=== PATIENT | female | born 1970 | race American Indian/Alaskan Native ===

== ENCOUNTER 2017-06-23 10:01 | Emergency (ER) | payer OTHER ==
[2017-06-23 12:27] VITALS: BP 161/88
--- NOTE | 2017-06-23 12:46 | Emergency Department Report ---
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 Patient was inside a car wash and a large wheal in the ceiling fell on the patient's head. Patient had brief loss of consciousness. Patient states she did have several episodes of nausea vomiting last night and has had a persistent headache. Patient will have a CT head ordered and will be reassessed
[2017-06-23] MEDS ORDERED: TORADOL IM ONE (12:47)
--- NOTE | 2017-06-23 13:23 | Cat Scan Report ---
FINAL REPORT EXAM: CT HEAD/BRAIN WO CON HISTORY: Head injury with LOC TECHNIQUE: CT examination of the head without IV contrast PRIORS: None. FINDINGS: No acute air-fluid level visualized in the included air-filled sinuses. Bone windows demonstrate no acute fracture. The brain is without mass, mass effect, hemorrhage, or acute infarct. There is no extra-axial intracranial bleed, brain bleed, or midline shift. The ventricles and sulci are age-appropriate. IMPRESSION: No acute CVA, intracranial bleed, or brain mass
--- NOTE | 2017-06-23 14:01 | Cat Scan Report ---
FINAL REPORT EXAM: CT CERVICAL SPINE WO CON HISTORY: trauma neck pain TECHNIQUE: CT of the Cervical Spine without IV contrast. Coronal and sagittal reformatted images were provided. PRIORS: None currently available. FINDINGS: Reversal of the cervical alignment centered at C4-C5. There is no fracture. There is no subluxation. There is no atlantooccipital dislocation. Occipitiocervical joint is intact. C1-C2: Intact. Mild degenerative discs are present at C3-C7. No significant canal narrowing. Some neural foraminal narrowing. Heterogenous, mildly enlarged thyroid gland. A distinct nodules not evident; however, nodules are not excluded. Remaining cervical levels do not demonstrate significant canal or foraminal narrowing. Prevertebral soft tissue structures are unremarkable. IMPRESSION: No acute fracture. Degenerative discs. Reversal of the cervical alignment centered at C4-C5.
--- NOTE | 2017-06-23 14:14 | Emergency Department Report ---
ED Head Trauma HPI - General Chief complaint: Head Injury Stated complaint: BACK/KNEE PAIN Time Seen by Provider: 06/23/17 12:38 Source: patient Mode of arrival: Ambulatory Limitations: No Limitations - History of Present Illness Initial comments: This is a 47-year-old female nontoxic, well nourished in appearance, no acute signs of distress presents to the ED with c/o of headache x1 day. 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 Patient states she believes she had a brief loss of consciousness. She then stated she has several episodes of nausea and vomiting last night and a headache that is intermittent. Patient denies any nausea vomiting currently. Patient denies any chest pain, shortness of breath, fever, chills, nausea, vomiting, headache or stiff neck. Patient denies any blurry vision or visual changes. Patient denies any allergies or significant past medical history. MD Complaint: head injury -: days(s) (1) Mechanism of Injury: work related injury Location: frontal Loss of Consciousness: yes, second(s) (brief) Previous Trauma to this Area: No Place: work Radiation: none Severity: mild Severity scale (0 -10): 8 Quality: aching Consistency: constant Provoking factors: none known Other Injuries: none Associated Symptoms: nausea, vomiting. denies: confusion, amnesia, repetitive questioning, vision changes, vertigo, syncope, numbness, weakness, tingling, neck pain - Related Data Previous Rx's Medication Instructions Recorded Last Taken Type Ibuprofen [Motrin] 600 mg PO Q8H PRN #30 tablet 06/23/17 Unknown Rx Allergies/Adverse reactions: Allergies Allergy/AdvReac Type Severity Reaction Status Date / Time No Known Allergies Allergy Unverified 06/23/17 10:33 ED Review of Systems ROS: Stated complaint: BACK/KNEE PAIN Other details as noted in HPI Constitutional: denies: chills, fever Eyes: denies: eye pain, eye discharge, vision change ENT: denies: ear pain, throat pain Respiratory: denies: cough, shortness of breath, wheezing Cardiovascular: denies: chest pain, palpitations Endocrine: no symptoms reported Gastrointestinal: denies: abdominal pain, nausea, diarrhea Genitourinary: denies: urgency, dysuria, discharge Musculoskeletal: denies: back pain, joint swelling, arthralgia Skin: denies: rash, lesions Neurological: headache. denies: weakness, paresthesias Psychiatric: denies: anxiety, depression Hematological/Lymphatic: denies: easy bleeding, easy bruising ED Past Medical Hx - Past Medical History Previous Medical History?: No - Surgical History Past Surgical History?: No - Social History Smoking Status: Never Smoker Substance Use Type: None - Medications Home Medications: Home Medications Medication Instructions Recorded Confirmed Last Taken Type Ibuprofen [Motrin] 600 mg PO Q8H PRN #30 tablet 06/23/17 Unknown Rx ED Physical Exam - General Limitations: No Limitations General appearance: alert, in no apparent distress - Head Head exam: Present: atraumatic, normocephalic - Eye Eye exam: Present: normal appearance, PERRL, EOMI Pupils: Present: normal accommodation - ENT ENT exam: Present: normal exam, normal orophraynx, mucous membranes moist - Neck Neck exam: Present: normal inspection, full ROM. Absent: tenderness, meningismus, lymphadenopathy, thyromegaly - Respiratory Respiratory exam: Present: normal lung sounds bilaterally. Absent: respiratory distress, wheezes, rales, rhonchi, stridor, chest wall tenderness, accessory muscle use, decreased breath sounds, prolonged expiratory - Cardiovascular Cardiovascular Exam: Present: regular rate, normal rhythm, normal heart sounds. Absent: bradycardia, tachycardia, irregular rhythm, systolic murmur, diastolic murmur, rubs, gallop - GI/Abdominal GI/Abdominal exam: Present: soft, normal bowel sounds. Absent: distended, tenderness, guarding, rebound, rigid, diminished bowel sounds - Rectal Rectal exam: Present: deferred - Extremities Exam Extremities exam: Present: normal inspection, full ROM, normal capillary refill. Absent: tenderness, pedal edema, joint swelling, calf tenderness - Back Exam Back exam: Present: normal inspection, full ROM. Absent: tenderness, CVA tenderness (R), CVA tenderness (L), muscle spasm, paraspinal tenderness, vertebral tenderness, rash noted - Neurological Exam Neurological exam: Present: alert, oriented X3, CN II-XII intact, normal gait, reflexes normal - Expanded Neurological Exam Expanded Patient oriented to: Present: person, place, time Cranial nerves: EOM's Intact: Normal, Gag Reflex: Normal, Tongue Deviation: Normal, Nystagmus: Normal, Facial Sensation: Normal, Facial Palsy with Forehead Movement: Normal, Facial Palsy without Forehead Movement: Normal Cerebellar function: Finger to Nose: Normal, Heel to Moya: Normal, Romberg: Normal Upper motor neuron: Tony Neglect: Normal, Pronator Drift: Normal, Babinski Sign : Normal, Sensory Extinction: Normal Sensory exam: Upper Extremity Light Touch: Normal, Upper Extremity Pin Prick: Normal, Upper Extremity Temperature: Normal, UE 2 Point Discrimination: Normal, Lower Extremity Light Touch: Normal, Lower Extremity Pin Prick: Normal, Lower Extremity Temperature: Normal, LE 2 Point Discrimination: Normal Motor strength exam: RUE: 5, LUE: 5, RLE: 5, LLE: 5 DTR: bicep (R): 2+, bicep (L): 2+, tricep (R): 2+, tricep (L): 2+, knee (R): 2+ , knee (L): 2+, ankle (R): 2+, ankle (L): 2+ Best Eye Response ([place]): (4) open spontaneously Best Motor Response ([place]): (6) obeys commands Best Verbal Response ([place]): (5) oriented [place] Total: 15 - Psychiatric Psychiatric exam: Present: normal affect, normal mood - Skin Skin exam: Present: warm, dry, intact, normal color. Absent: rash ED Course Vital Signs 06/23/17 06/23/17 06/23/17 10:33 12:20 12:28 Temperature 98.6 F 98.3 F Pulse Rate 72 71 Respiratory 16 16 Rate Blood Pressure 161/89 161/88 O2 Sat by Pulse 100 100 Oximetry - Reevaluation(s) Reevaluation #1: 06/23/17 14:32 Patient is speaking in full sentences with no signs of distress noted. - Consultations Consultation #1: 06/23/17 14:32 Patient has been consulted with Dr. Gordon about patient history, physical exam , and labs and examined and screened patient and agrees to ED plan of care and discharge plan of care. - Medical Decision Making This is a 47-year-old female presents with headache. Patient is stable and was examined me. CT of head cause brain and cervical spine obtained within normal limits and dictated by radiologist. Patient received Toradol 60 mg IM prior to my interview which patient stated that his symptoms of headache has subsided. Patient denies any nausea or vomiting. Patient was instructed to Follow-up with a primary care doctor in 3-5 days or if symptoms worsen and continue return to emergency room as soon as possible. At time of discharge, the patient does not seem toxic or ill in appearance. No acute signs of distress noted. Patient agrees to discharge treatment plan of care. No further questions noted by the patient. - NEXUS Criteria Focal neurological deficit present: No Midline spinal tenderness present: No Altered level of consciousness: No Intoxication present: No Distracting injury present: No NEXUS results: C-Spine can be cleared clinically by these results. Imaging is not required. Critical care attestation.: If time is entered above; I have spent that time in minutes in the direct care of this critically ill patient, excluding procedure time. ED Disposition Clinical Impression: Head trauma Qualifiers: Encounter type: initial encounter Qualified Code(s): S09.90XA - Unspecified injury of head, initial encounter Headache Qualifiers: Headache type: unspecified Headache chronicity pattern: acute headache Intractability: not intractable Qualified Code(s): R51 - Headache Disposition: DC-01 TO HOME OR SELFCARE Is pt being admited?: No Does the pt Need Aspirin: No Condition: Stable Instructions: Acute Headache (ED), Ibuprofen (By mouth) Additional Instructions: Follow-up with a primary care doctor in 3-5 days or if symptoms worsen and continue return to emergency room as soon as possible. Prescriptions: Ibuprofen [Motrin] 600 mg PO Q8H PRN #30 tablet PRN Reason: Pain Referrals: PRIMARY CAREMD [Primary Care Provider] - 3-5 Days ANN JENSEN MD [Staff Physician] - 3-5 Days [facility] [Outside] - 3-5 Days [facility] [Outside] - 3-5 Days Forms: Work/School Release Form(ED)
== END 2017-06-23 15:06 | disposition home or self-care (01) ==
LOC: ED 10:01
DX: S09.90XA Unspecified injury of head, initial encounter (principal); W31.89XA Contact with other specified machinery, initial encounter; Y93.89 Activity, other specified; Y99.0 Civilian activity done for income or pay; Y92.69 Other specified industrial and construction area as the place of occurrence of the external cause
CPT/HCPCS: 70450; 72125; 96372; 99283; J1885